=== PATIENT | female | born 1960 | race Two or more races ===

== ENCOUNTER 2019-12-01 09:50 | Day surgery (SDC) | payer OTHER ==
[~2019-12-01] VITALS: Ht 160 cm; Wt 87.6 kg
[~2019-12-01 09:50] MED LIST: ATOR40TA PO; ESCI10 PO; FERSU300 PO; Hair, Skin & N1 EACH PO; PANT40 PO; Vitron-C Table1 EACH PO
== END 2019-12-01 12:34 | disposition home or self-care (01) ==
LOC: ORSCSDS 09:50
PROVIDERS: Podiatrist Foot & Ankle Surgery
PROC: 0QSN04Z Reposition Right Metatarsal with Internal Fixation Device, Open Approach (ICD-10-PCS; principal; 2019-12-01 11:00)
DX: M21.611 Bunion of right foot (principal); Z87.891 Personal history of nicotine dependence; E78.5 Hyperlipidemia, unspecified; Z79.899 Other long term (current) drug therapy
CPT/HCPCS: C1713; C1769; J0171; J0690; J1100; J2250; J2405; J2704; J3010; J7120

== ENCOUNTER → 2020-12-22 | Outpatient (CLI) | payer OTHER ==
[2020-12-29 09:25] LABS: Stool Occult Bld Immuno 1 Negative (NEGATIVE)
== END | disposition home or self-care (01) ==
LOC: LAB SHORT 15:09 → LAB 15:09 → LAB SHORT 12-28 15:09
PROVIDERS: Nurse Practitioner Family
DX: Z12.11 Encounter for screening for malignant neoplasm of colon (principal)
CPT/HCPCS: G0328

== ENCOUNTER 2022-05-06 21:10 | Emergency (ER) | payer OTHER ==
[~2022-05-06] VITALS: Ht 167.6 cm; Wt 72.6 kg
== END 2022-05-07 01:22 | disposition home or self-care (01) ==
LOC: ER 21:10
DX: M25.562 Pain in left knee (principal); K21.9 Gastro-esophageal reflux disease without esophagitis; Z87.891 Personal history of nicotine dependence; Z79.899 Other long term (current) drug therapy
CPT/HCPCS: 73562-LT; A9270; J1885

== ENCOUNTER → 2022-09-20 | Outpatient (CLI) | payer OTHER ==
[2022-09-23 15:09] LABS: HPV 16 Negative (Negative); HPV 18 Negative (Negative); HPV OTHER HR TYPES Negative (Negative)
[2022-09-24 02:10] LABS: CHLAMYDIA BY NAA Negative (Negative); GONOCOCCUS BY NAA Negative (Negative); TRICH VAG BY NAA Negative (Negative)
== END | disposition home or self-care (01) ==
LOC: LAB SHORT 16:59 → LAB 16:59
PROVIDERS: Obstetrics & Gynecology
DX: Z11.3 Encounter for screening for infections with a predominantly sexual mode of transmission (principal); Z01.419 Encounter for gynecological examination (general) (routine) without abnormal findings
CPT/HCPCS: 87491; 87591; 87624; 87661; G0145

== ENCOUNTER 2022-12-13 06:44 | Day surgery (SDC) | payer OTHER ==
[~2022-12-13] VITALS: Ht 160 cm; Wt 82.9 kg
[2022-12-13] MEDS ORDERED: ESTRADIOL2 MG (07:12)
[2022-12-13] MEDS ORDERED: OMEP20ER (07:14)
[2022-12-13] MEDS ORDERED: ESTROGEN CREAM (07:14)
[2022-12-13] MEDS ORDERED: PROG100 (07:14)
[2022-12-13 07:22] VITALS: BP 99/66
== END 2022-12-13 09:18 | disposition home or self-care (01) ==
LOC: ORSCSDS 06:44
PROVIDERS: Specialist
PROC: 0DB68ZX Excision of Stomach, Via Natural or Artificial Opening Endoscopic, Diagnostic (ICD-10-PCS; principal; 2022-12-13 08:00)
PROC: 0DBP8ZX Excision of Rectum, Via Natural or Artificial Opening Endoscopic, Diagnostic (ICD-10-PCS; principal; 2022-12-13 08:00)
PROC: 0DBN8ZX Excision of Sigmoid Colon, Via Natural or Artificial Opening Endoscopic, Diagnostic (ICD-10-PCS; principal; 2022-12-13 08:00)
PROC: 0DBK8ZX Excision of Ascending Colon, Via Natural or Artificial Opening Endoscopic, Diagnostic (ICD-10-PCS; principal; 2022-12-13 08:00)
PROC: 0DB58ZX Excision of Esophagus, Via Natural or Artificial Opening Endoscopic, Diagnostic (ICD-10-PCS; principal; 2022-12-13 08:00)
DX: K21.9 Gastro-esophageal reflux disease without esophagitis (principal); Z86.010 Personal history of colon polyps; Z80.0 Family history of malignant neoplasm of digestive organs; Z83.71 Family history of colonic polyps; K29.50 Unspecified chronic gastritis without bleeding; K63.5 Polyp of colon; K62.1 Rectal polyp; R10.13 Epigastric pain; K44.9 Diaphragmatic hernia without obstruction or gangrene; K64.8 Other hemorrhoids; K57.30 Diverticulosis of large intestine without perforation or abscess without bleeding; L53.9 Erythematous condition, unspecified; Z79.899 Other long term (current) drug therapy
CPT/HCPCS: 88305; 88342; J2704; J7120

== ENCOUNTER 2024-03-05 08:35 | Day surgery (SDC) | payer OTHER ==
[~2024-03-05] VITALS: Ht 160 cm; Wt 85.0 kg
[~2024-03-05 08:35] MED LIST changes: +ESTRADIOL2 MG; +ESTROGEN CREAM; +Lactated Ringer's 1,000 ML IV ONE; +OMEP20ER; +PROG100
[2024-03-05] MEDS ORDERED: PROG100 PO (08:53)
[2024-03-05] MEDS ORDERED: VIT D3-VIT K21 EACH PO (08:53)
[2024-03-05] MEDS ORDERED: GLUC500 (08:54)
[2024-03-05] MEDS ORDERED: Lactated Ringer's 1,000 ML IV ONE (09:00)
[2024-03-05] MEDS ORDERED: Midazolam HCl 1MG / ML 2ML Vial ONE (09:23)
[2024-03-05] MEDS ORDERED: propofoL 20 ML IV ONE (09:43)
[2024-03-05] MEDS ORDERED: FentaNYL Citrate 50 MCG/ML 2 ML Injection ONE ×2 (09:43→11:17)
[2024-03-05] MEDS ORDERED: Dexamethasone Sod Phos 10 MG/ML 1ML VIAL ONE (09:44)
[2024-03-05] MEDS ORDERED: Ondansetron HCl 2 MG / ML 2ML Vial ONE (09:44)
[2024-03-05] MEDS ORDERED: Ketorolac Tromethamine 30mg Vial ONE (09:44)
[2024-03-05] MEDS ORDERED: Acetaminophen 500 MG Tab ONE (11:46)
[2024-03-05] MEDS ORDERED: OxyCODONE HCL 5 MG TAB ONE (11:46)
[2024-03-05 12:04] VITALS: BP 134/70
== END 2024-03-05 12:40 | disposition home or self-care (01) ==
LOC: ORSCSDS 08:35
PROVIDERS: Obstetrics & Gynecology
PROC: 0UDB8ZX Extraction of Endometrium, Via Natural or Artificial Opening Endoscopic, Diagnostic (ICD-10-PCS; principal; 2024-03-05 09:45)
DX: N85.01 Benign endometrial hyperplasia (principal); F32.A Depression, unspecified; N94.10 Unspecified dyspareunia; E78.00 Pure hypercholesterolemia, unspecified; K21.9 Gastro-esophageal reflux disease without esophagitis; E66.9 Obesity, unspecified; Z68.33 Body mass index [BMI] 33.0-33.9, adult; Z87.891 Personal history of nicotine dependence; Z79.899 Other long term (current) drug therapy
CPT/HCPCS: 88305; A9270; J1100; J1885; J2250; J2405; J2704; J3010; J7120